=== PATIENT | male | born 1950 | race Hispanic/Latino ===

== ENCOUNTER → 2020-03-11 | Outpatient (CLI) | payer MEDICARE ==
[~2020-03-11] MED LIST: REGADENOSON 0.4 MG/5 ML SYR IV ONE
== END ==
LOC: NM 09:17
PROVIDERS: ATTEND Internal Medicine Cardiovascular Disease
DX: R07.9 Chest pain, unspecified (principal)
CPT/HCPCS: 72050; 78452; 93017; 93306; A9502; J2785

== ENCOUNTER 2021-02-22 16:50 | Emergency (ER) | payer MEDICARE, OTHER ==
[~2021-02-22] VITALS: Ht 170.2 cm; Wt 120.2 kg
[2021-02-22 17:48] LABS: BASOPHILS % 0.7 % (0.0-1.0); EOSINOPHILS # (AUTO) 0.2 (0.0-0.4); EOSINOPHILS % 3.1 % (0.0-6.0); HEMATOCRIT 39.1 % (38.2-49.6); HEMOGLOBIN 13.6 g/dL (14.0-18.0); LYMPHOCYTES # (AUTO) 1.6 (1.0-3.2); LYMPHOCYTES % 29.6 % (18.0-39.1); MEAN CORPUSCULAR HEMOGLOBIN 32.8 pg (28-32); MEAN CORPUSCULAR HGB CONC 34.8 g/dL (31-35); MEAN CORPUSCULAR VOLUME 94.2 fL (81-99); MONOCYTES # (AUTO) 0.6 (0.2-0.8); MONOCYTES % 10.2 % (4.4-11.3); NEUTROPHILS # (AUTO) 3.1 (2.1-6.9); PLATELET COUNT 171 x10e3/uL (140-360); RED BLOOD COUNT 4.15 x10e6/uL (4.3-5.7); RED CELL DISTRIBUTION WIDTH 12.3 % (11.7-14.4)
[2021-02-22 17:52] LABS: INR 0.97; PROTHROMBIN TIME 13.7 seconds (11.9-14.5)
[2021-02-22 17:53] LABS: PARTIAL THROMBOPLASTIN TIME 26.1 seconds (23.8-35.5)
[2021-02-22 17:59] LABS: ALBUMIN 3.5 g/dL (3.5-5.0); ALBUMIN/GLOBULIN RATIO 0.9 (0.8-2.0); ANION GAP 13.7 mmol/L (8-16); CALCIUM 9.1 mg/dL (8.4-10.2); CREATININE, SERUM 0.69 mg/dL (0.72-1.25); POTASSIUM 3.7 mmol/L (3.5-5.1)
[2021-02-22 18:54] LABS: CREATINE KINASE MB 3.6 ng/mL (0-5.0)
[2021-02-22] MEDS ORDERED: PREDNISONE50 MG PO (19:05)
[2021-02-22] MEDS ORDERED: AZITHROMYCIN250 MG PO (19:05)
[2021-02-22] MEDS ORDERED: BROMFED DM COU118 ML PO (19:05)
[2021-02-22] MEDS ORDERED: ONDANSETRON ODT4 MG PO (19:05)
[2021-02-22] MEDS ORDERED: VENTOLIN HFA18 GM INH (19:05)
== END 2021-02-22 19:12 | disposition home or self-care (01) ==
LOC: ER 17:28
DX: U07.1 COVID-19 (principal); R05.9 Cough, unspecified; E11.65 Type 2 diabetes mellitus with hyperglycemia; I10 Essential (primary) hypertension; G20 Parkinson's disease; E78.5 Hyperlipidemia, unspecified; E03.9 Hypothyroidism, unspecified; M06.9 Rheumatoid arthritis, unspecified; Z96.611 Presence of right artificial shoulder joint
CPT/HCPCS: 36415; 70450; 71045; 80053; 82550; 82553; 83735; 84484; 85025; 85610; 85730; 93005; 99284

== ENCOUNTER 2021-05-04 06:01 | Emergency (ER) | payer MEDICARE, OTHER ==
[~2021-05-04] VITALS: Ht 170.2 cm; Wt 120.2 kg
[~2021-05-04 06:01] MED LIST changes: +AZITHROMYCIN250 MG PO; +BROMFED DM COU118 ML PO; +ONDANSETRON ODT4 MG PO; +PREDNISONE50 MG PO; -REGADENOSON 0.4 MG/5 ML SYR IV ONE; +VENTOLIN HFA18 GM INH
[2021-05-04] MEDS ORDERED: ONDANSETRON ODT4 MG PO (06:30)
[2021-05-04] MEDS ORDERED: ULTRAM50 MG PO (06:30)
[2021-05-04] MEDS ORDERED: KETOROLAC TROMETHAMINE 30 MG/ML VIAL IM ONE (06:30)
[2021-05-04] MEDS ORDERED: ONDANSETRON HCL 4 MG ORAL DISINTEGRATING TAB PO ONE (06:30)
[2021-05-04] MEDS ORDERED: ACETAMINOPHEN500 MG PO (06:30)
[2021-05-04] MEDS ORDERED: ACETAMINOPHEN 325 MG TAB PO ONE (06:30)
[2021-05-04] MEDS ORDERED: KETOROLAC TROMETHAMINE 30 MG/ML VIAL ONE (06:48)
[2021-05-04] MEDS ORDERED: ONDANSETRON HCL 4 MG ORAL DISINTEGRATING TAB ONE (06:48)
[2021-05-04] MEDS ORDERED: ACETAMINOPHEN 325 MG TAB ONE (06:49)
== END 2021-05-04 07:05 | disposition home or self-care (01) ==
LOC: FSED 06:09
DX: M25.512 Pain in left shoulder (principal); M75.02 Adhesive capsulitis of left shoulder; G20 Parkinson's disease; I10 Essential (primary) hypertension; E11.9 Type 2 diabetes mellitus without complications; E78.5 Hyperlipidemia, unspecified; E03.9 Hypothyroidism, unspecified; M06.9 Rheumatoid arthritis, unspecified; M54.9 Dorsalgia, unspecified; G89.29 Other chronic pain; Z96.611 Presence of right artificial shoulder joint
CPT/HCPCS: 99282; J1885; Q0162

== ENCOUNTER 2023-08-10 13:55 | Outpatient (RCR) | payer MEDICARE ==
[~2023-08-10 13:55] MED LIST changes: +ACETAMINOPHEN500 MG PO; +ULTRAM50 MG PO
== END 2023-08-12 ==
LOC: PT 13:55
PROVIDERS: ATTEND Physician Assistant
DX: M75.112 Incomplete rotator cuff tear or rupture of left shoulder, not specified as traumatic (principal); M19.012 Primary osteoarthritis, left shoulder; M25.512 Pain in left shoulder; M25.612 Stiffness of left shoulder, not elsewhere classified; M62.81 Muscle weakness (generalized)

== ENCOUNTER 2023-08-14 11:28 | Outpatient (RCR) | payer MEDICARE | END 2023-09-12 | LOC: PT 11:28 | PROVIDERS: ATTEND Physician Assistant | DX: M75.112 Incomplete rotator cuff tear or rupture of left shoulder, not specified as traumatic (principal); M19.012 Primary osteoarthritis, left shoulder; M25.512 Pain in left shoulder; M25.612 Stiffness of left shoulder, not elsewhere classified; M62.81 Muscle weakness (generalized) ==